=== PATIENT | male | born 1975 | race African-American/Black ===

== ENCOUNTER 2018-03-28 05:54 | Emergency (ER) | payer BC ==
[~2018-03-28] VITALS: Ht 177.8 cm; Wt 93.4 kg
--- NOTE | 2018-03-28 06:34 | NUR ---
RECEIVED PATIENT IN ROOM A WITH C/O LEFT UPPER QUADRANT ABDOMINAL PAIN WITH RADIATION TO BACK. PATIENT STATESPAIN ALL NIGHT, UNABLE TO SLEEP. DENIES N/V.
[2018-03-28] MEDS ORDERED: MORPHINE SULFATE 2 MG/1 ML DISP.SYRIN IV ONE (07:00)
[2018-03-28] MEDS ORDERED: IV NORMAL SALINE 1000 ML BAG IV ONE (07:00)
[2018-03-28] MEDS ORDERED: ONDANSETRON 4 MG/2 ML VIAL IV ONE (07:00)
[2018-03-28] MEDS ORDERED: MORPHINE SULFATE 4 MG/1 ML DISP.SYRIN ONE (07:13)
[2018-03-28] MEDS ORDERED: ONDANSETRON 4 MG/2 ML VIAL ONE (07:14)
[2018-03-28 07:18] LABS: BASOPHILS # (AUTO) 0.1 K/uL (0.0-8.0); BASOPHILS % (AUTO) 0.8 % (0.0-2.0); EOSINOPHILS # (AUTO) 0.2 K/uL (0.0-0.7); EOSINOPHILS % (AUTO) 2.5 % (0.0-7.0); HEMATOCRIT 45.2 % (36.7-47.1); HEMOGLOBIN 15.5 g/dL (12.5-16.3); LYMPHOCYTES # (AUTO) 2.8 K/uL (20.0-40.0); LYMPHOCYTES % (AUTO) 32.2 % (20.5-51.5); MEAN CORPUSCULAR HEMOGLOBIN 31.5 uug (23.8-33.4); MEAN CORPUSCULAR HGB CONC 34 g/dL (32.5-36.3); MONOCYTES # (AUTO) 0.9 K/uL (2.0-10.0); MONOCYTES % (AUTO) 10.2 % (0.0-11.0); NEUTROPHILS # (AUTO) 4.7 K/uL (1.8-8.9); NEUTROPHILS % (AUTO) 54.3 % (38.5-71.5); PLATELET COUNT (AUTO) 239 K/uL (152-348); RED BLOOD CELL COUNT(AUTO) 4.92 MIL/uL (4.06-5.63); WHITE BLOOD COUNT (AUTO) 8.7 K/uL (3.6-10.2)
--- NOTE | 2018-03-28 07:20 | NUR ---
EVALUATED BY ER DR, 22G IV INSERTED, MEDICATED FOR PAIN, TO RADIOLOGY FOR CT.
--- NOTE | 2018-03-28 07:21 | NUR ---
REPORT GIVEN TO ONCOMING RN
[2018-03-28 07:22] LABS: CREATININE 1.1 mg/dL (0.6-1.3); POTASSIUM 3.2 mmol/L (3.5-5.1)
[2018-03-28 07:38] LABS: BILIRUBIN,DIRECT 0.3 mg/dL (0.0-0.2); BILIRUBIN,TOTAL 1.3 mg/dL (0.2-1.0); TOTAL PROTEIN, SERUM 7.8 g/dL (6.4-8.2)
--- NOTE | 2018-03-28 08:31 | NUR ---
Patient discharged to home in stable conditon. Written and verbal after care instructions given. Patient verbalizes understanding of instructions.PT WALKS IN STEADY GAIT. PT SAYS FEELS BETTER. PT WAS GIVEN THE COPY OF ALL STUDIES TO FOLLOW UP. PT ACCMPANED BY , PT NOT DRIVING
[2018-03-28 08:32] VITALS: BP 131/89
== END 2018-03-28 08:36 | disposition home or self-care (01) ==
LOC: ER 05:58
DX: R10.11 Right upper quadrant pain (principal); Z91.09 Other allergy status, other than to drugs and biological substances
CPT/HCPCS: 36415; 74176; 80048; 80076; 83690; 85025; 96374; 96375; 99284; J2270; J2405; A4663

== ENCOUNTER 2018-03-30 15:01 | Emergency (ER) | payer BC ==
[~2018-03-30] VITALS: Ht 170.2 cm; Wt 93.4 kg
[2018-03-30] MEDS ORDERED: PANT40TA2 PO (15:07)
--- NOTE | 2018-03-30 15:32 | NUR ---
Dr Myers at the bedside for MSE.
--- NOTE | 2018-03-30 16:01 | NUR ---
Patient discharged to home in stable conditon. Written and verbal after care instructions given. Patient verbalizes understanding of instructions.
[2018-03-30 16:02] VITALS: BP 114/71
== END 2018-03-30 16:02 | disposition home or self-care (01) ==
LOC: ER 15:02
DX: K29.70 Gastritis, unspecified, without bleeding (principal); R10.9 Unspecified abdominal pain; K59.00 Constipation, unspecified; K21.9 Gastro-esophageal reflux disease without esophagitis; Z91.09 Other allergy status, other than to drugs and biological substances
CPT/HCPCS: A4663